=== PATIENT | female | born 2000 | race African-American/Black ===

== ENCOUNTER 2020-01-15 15:59 | Observation (INO) | payer OTHER ==
[2020-01-15] MEDS ORDERED: Midazolam HCl 2 mg/2 ml Vial ONE (16:02)
[2020-01-15] MEDS ORDERED: levETIRAcetam 500 MG/100 ML PREMIX BAG ONE (16:13)
[2020-01-15] MEDS ORDERED: Ondansetron PF 4 MG/2 ML Vial ONE (16:15)
[2020-01-15 16:25] LABS: Lavender RECEIVED; Red RECEIVED
[2020-01-15 16:30] LABS: #Eosinphils 0.1 thou/uL (0.0-0.7); #Lymphocytes 0.5 thou/uL (1.20-3.40); #Monocytes 0.7 thou/uL (0.11-0.59); #Neutrophils 6.7 thou/uL (1.40-6.50); %Basophils 0.5 % (0.0-1.0); %Eosinophils 0.6 % (0.0-10.0); %Lymphocytes 6.4 % (21.0-51.0); %Monocytes 9.2 % (0.0-10.0); %Neutrophils 83.3 % (42.0-75.0); Hemoglobin 11.6 g/dL (12.0-16.0); Mean Corpuscular HGB CONC 33.7 g/dL (32.0-36.0); Mean Corpuscular Hemoglobin 26.1 pg (27.0-31.0); Mean Corpuscular Volume 77.3 fL (78.0-98.0); Mean Platelet Volume 8.4 fL (7.4-10.4); Platelet Count 239 thou/uL (130-400); RBC Distribution Width 14.1 % (11.5-14.5); Red Blood Cell (RBC) Count 4.46 mill/uL (4.20-5.40)
--- NOTE | 2020-01-15 16:58 | RAD ---
EXAM: Single view of the chest HISTORY: Seizure and fever COMPARISON: None FINDINGS: Single view of the chest shows a normal sized cardiomediastinal silhouette. There is no lizbeth dence of consolidation, mass, or pleural effusion. The bones are unremarkable. IMPRESSION: No evidence of acute cardiopulmonary disease
[2020-01-15 16:59] LABS: ALT (SGPT) Less than 7 U/L (8-55); AST (SGOT) 15 U/L (5-34); Albumin 4.5 g/dL (3.5-5.0); Alkaline Phosphatase 71 U/L (40-110); Anion Gap 17 mmol/L (10-20); BUN (Urea Nitrogen) 8 mg/dL (7.0-18.7); Bilirubin, Total 0.7 mg/dL (0.2-1.2); Calc. Creatinine Clearance 0 mL/min (70-130); Calcium 9.9 mg/dL (7.8-10.44); Carbon Dioxide 16 mmol/L (22-29); Chloride 107 mmol/L (98-107); Estimated GFR-MDRD 79; Globulin 3.6 g/dL (2.4-3.5); Glucose 81 mg/dL (70-105); Potassium 4.2 mmol/L (3.5-5.1); Protein, Total 8.1 g/dL (6.0-8.3); Sodium 136 mmol/L (136-145)
[2020-01-15] MEDS ORDERED: SODIUM CHLORIDE 0.9% IVPB SCH (17:00)
[2020-01-15] MEDS ORDERED: FOSPHENYTOIN SODIUM IVPB SCH (17:00)
[2020-01-15 17:24] LABS: Lactic Acid 2.4 mmol/L (0.5-2.2)
[2020-01-15 18:36] LABS: Bacteria/HPF None Seen HPF (None Seen); Bilirubin Negative (Negative); Blood, Urine Negative (Negative); Clarity Clear (Clear); Glucose, Urine (Dipstick) Normal (Negative); Leukocyte 75 Leu/uL (Negative); Nitrite Negative (Negative); Protein, Urine (Dipstick) Negative (Neg-Trace); RBC/HPF 0-3 HPF (0-3); Squamous Epithelial 0-3 HPF (0-3); Urobilinogen Normal mg/dL (Less than 2); WBC/HPF 0-3 HPF (0-3)
[2020-01-15 18:39] LABS: Pregnancy Test - Urine (BHCG) Negative (Negative); Pregu Control Background? CLEAR/WHITE (CLR/WHITE); Pregu Control Bar Appear? YES (CONTROL BAR); Specific Gravity 1.014 (1.002-1.036)
[2020-01-15 18:45] LABS: Medtox Reader # READER 4
[2020-01-15 18:46] LABS: Amphetamine Not Detected (NotDetected); Barbiturates Screen Not Detected (NotDetected); Benzodiazepine Screen Not Detected (NotDetected); Cocaine Metabolite Screen Not Detected (NotDetected); Medtox Control Line Valid? VALID (VALID); Methadone Not Detected (NotDetected); Methamphetamine Not Detected (NotDetected); Opiate Screen Not Detected (NotDetected); Oxycodone Screen Not Detected (NotDetected); Phencyclidine (PCP) Not Detected (NotDetected); THC/Cannabinoid Screen Detected (NotDetected); Tricyclic Screen Not Detected (NotDetected)
[2020-01-15] MEDS ORDERED: Acetaminophen 500 MG TAB ONE (20:32)
[2020-01-15] MEDS ORDERED: cefTRIAXone\\ROCEPHIN 2 GM VIAL ONE (21:22)
[2020-01-15 22:21] LABS: Lactic Acid 2.4 mmol/L (0.5-2.2)
[2020-01-15 22:24] LABS: Anion Gap 13 mmol/L (10-20); BUN (Urea Nitrogen) 6 mg/dL (7.0-18.7); Calc. Creatinine Clearance 0 mL/min (70-130); Calcium 8.4 mg/dL (7.8-10.44); Carbon Dioxide 19 mmol/L (22-29); Chloride 109 mmol/L (98-107); Estimated GFR-MDRD Greater than 90; Glucose 88 mg/dL (70-105); Magnesium 1.7 mg/dL (1.6-2.6); Phosphorus 2.6 mg/dL (2.3-4.7); Potassium 3.6 mmol/L (3.5-5.1); Sodium 137 mmol/L (136-145)
--- NOTE | 2020-01-15 23:17 | HP ---
Please note that the patient has 2 different medical record numbers. For details on previous hospitalization, please refer to the medical record number, [id number]. CHIEF COMPLAINT: Seizure. HISTORY OF PRESENT ILLNESS: The patient is a 19-year-old female with seizure disorder, was brought into the hospital after an episode of seizure. History obtained from the patient and the family at the bedside. The patient was admitted at this facility in September 2019 with a diagnosis of breakthrough seizures. She was evaluated by Dr. Ace. She was advised to continue Lamictal. She was discharged home in a stable condition. She was evaluated by Dr. Ace yesterday. She had no issues since last discharge. Over the last few days, the patient has low-grade fever along with flu-like symptoms. Over the last 24 hours, the symptoms got worse. She had a seizure that lasted for approximately 30 minutes per family report. She was jerking her back. She also had altered mentation. She had 4 seizures in the ambulance. She got 4 mg of Versed. Her mentation is improving at this time. She denies any headache, double vision, blurring of vision, facial asymmetry, or weakness, numbness of one side more than the other. She feels generally weak and fatigued. In the emergency room, her initial vital signs showed temperature 99.8 with pulse rate of 141, blood pressure of 124/74 with O2 saturation 100% on room air. PAST MEDICAL HISTORY: 1. Seizure disorder. 2. History of autonomic dysfunction. 3. Chronic anemia. PAST SURGICAL HISTORY: Reviewed with the patient and none. ALLERGIES: THE PATIENT IS ALLERGIC TO TAMIFLU THAT CAUSES HALLUCINATION. THE PATIENT ALSO IS UNABLE TO TOLERATE KEPPRA PER FAMILY. MEDICATIONS: Home medications to be verified. The patient is on; 1. Lamictal. 2. Propranolol. 3. Midodrine. SOCIAL HISTORY: The patient currently lives at home. Denies any alcohol, tobacco, or drug use. FAMILY HISTORY: Negative for heart disease. REVIEW OF SYSTEMS: Limited due to current mentation. She denies any chest pain, shortness of breath, or palpitations. PHYSICAL EXAMINATION: VITAL SIGNS: As discussed above. GENERAL: A 19-year-old female, in no apparent distress, feels generally weak. HEENT: Head, atraumatic and normocephalic. Sclerae anicteric. Dry mucous membranes. There is mild erythema over the posterior pharynx. NECK: Supple. No JVD. No carotid bruit. LUNGS: Clear to auscultation bilaterally. No wheezing, rales, or rhonchi. HEART: S1 and S2 present. Tachycardic. No rubs or gallops. ABDOMEN: Soft, nontender. Bowel sounds present. EXTREMITIES: No edema or calf tenderness. NEUROLOGIC: Exam is limited due to generalized weakness. Sensation to touch was normal bilaterally. PSYCHIATRIC: The patient is alert, awake; however, slow to respond. SKIN: Warm and dry. LYMPH NODES: No palpable lymph nodes in the neck. PERIPHERAL VASCULAR: Radial pulses palpable bilaterally. LABORATORY FINDINGS: CBC showed WBC 8 with hemoglobin 11.6, hematocrit 34.5, platelet 239. Chemistry showed sodium of 136, potassium 4.2, chloride 102, bicarb 16, BUN of 8, creatinine 0.89. LFTs in normal range. Prolactin was 30.4. Magnesium 1.7. Urine drug screen was positive for cannabinoid. Urinalysis was negative for wbc or bacteria. Urine test was negative. Influenza screen was negative. Chest x-ray by my review was negative. IMPRESSION: 1. Breakthrough seizures. 2. Fever suspected secondary to viral syndrome. 3. History of seizure disorder. 4. Autonomic dysfunction. 5. Lactic acidosis secondary to seizure. PLAN: The patient will be monitored in the stroke unit. Empiric antibiotics will be continued. The patient received fosphenytoin. Blood cultures were not sent prior to the antibiotics. We will consult Neurology and Infectious Disease. We will check Dilantin level in a.m. We will resume her home medications once confirmed. Frequent neuro checks. The patient and the family understands the above plan of care. Job ID: [id number]
[2020-01-16 01:35] LABS: CSF, Glucose 60 mg/dl (40-70); CSF, Protein 25 mg/dL (15-40)
[2020-01-16 01:36] LABS: CSF Source CSF; Clarity Clear (Clear); Tube # 1; Tube # 4
[2020-01-16 01:49] VITALS: BMI 23.7
[2020-01-16] MEDS ORDERED: Ondansetron PF 4 MG/2 ML Vial IVP PRN ×2 (01:52→02:25)
[2020-01-16] MEDS ORDERED: Acetaminophen 325 MG TAB PO PRN (01:52)
[2020-01-16] MEDS ORDERED: Ondansetron ODT 4 MG TAB SL PRN (01:52)
[2020-01-16 01:57] LABS: Color Of CSF Supernatant COLORLESS (Colorless); Tube # 2; Unspun CSF Color COLORLESS (Colorless)
[2020-01-16] MEDS ORDERED: Lactated Ringer's 1,000 ML IV SCH (02:00)
[2020-01-16] MEDS ORDERED: Benzonatate 100 MG CAP PO PRN (02:25)
[2020-01-16] MEDS ORDERED: Cepastat Lozenges 1 LOZ PO PRN (02:25)
[2020-01-16] MEDS ORDERED: Diabetic Tussin 200 MG/10 ML UDCUP PO PRN (02:25)
[2020-01-16] MEDS: Lactated Ringer's 1,000 ML IV SCH ×2 (04:52→17:34)
[2020-01-16] MEDS: Acetaminophen 325 MG TAB PO PRN ×2 (07:57→13:08)
[2020-01-16] MEDS: guaiFENesin ER 600 MG TAB PO SCH ×2 (07:58→20:12)
[2020-01-16] MEDS: Propranolol HCl LA 60 MG CAP PO SCH (08:08)
[2020-01-16] MEDS ORDERED: lamoTRIgine 100 MG TAB PO SCH ×3 (09:00→10:30)
[2020-01-16 09:35] LABS: BUN (Urea Nitrogen) 5 mg/dL (7.0-18.7); Calc. Creatinine Clearance 101 mL/min (70-130); Calcium 8.8 mg/dL (7.8-10.44); Carbon Dioxide 17 mmol/L (22-29); Chloride 105 mmol/L (98-107); Estimated GFR-MDRD Greater than 90; Glucose 89 mg/dL (70-105); Magnesium 1.7 mg/dL (1.6-2.6); Phosphorus 2.9 mg/dL (2.3-4.7); Potassium 3.4 mmol/L (3.5-5.1); Sodium 131 mmol/L (136-145)
[2020-01-16 12:18] LABS: Anion Gap 22 mmol/L (10-20)
--- NOTE | 2020-01-16 12:34 | PDOC.HOSPP ---
- Subjective Encounter Date: 01/16/20 Encounter Time: 07:00 Subjective: pt has high fever today, she refused to do nasal swab for viral panel - Objective Vital Signs & Weight: Vital Signs (12 hours) Temp Pulse Pulse Pulse Resp BP BP 01/16/20 11:38 98.8 F 101 H 16 01/16/20 09:49 98.8 F 01/16/20 09:06 114 H 117 H 95/58 L 108/73 01/16/20 08:45 102.2 F H 01/16/20 08:25 122 H 18 01/16/20 04:44 99 F 110 H 20 01/16/20 04:00 01/16/20 01:29 99.8 F H 116 H 20 BP Pulse Ox 01/16/20 11:38 128/86 95 01/16/20 09:49 01/16/20 09:06 01/16/20 08:45 01/16/20 08:25 124/76 97 01/16/20 04:44 99 01/16/20 04:00 100 01/16/20 01:29 92/50 L 98 Weight Weight 121 lb 9.6 oz Result Diagrams: 01/15/20 16:07 01/16/20 09:04 Additional Labs: Accuchecks 01/15/20 16:47 POC Glucose 78 Radiology Reviewed by me: Yes EKG Reviewed by me: Yes Hospitalist ROS - Review of Systems Constitutional: reports: fever. denies: chills, sweats, weakness, malaise, other Eyes: denies: pain, vision change, conjunctivae inflammation, eyelid inflammation, redness, other ENT: denies: ear pain, ear discharge, nose pain, nose discharge, nose congestion , mouth pain, mouth swelling, throat pain, throat swelling, other Respiratory: reports: cough, dry. denies: shortness of breath, hemoptysis, SOB with excertion, pleuritic pain, sputum, wheezing, other Cardiovascular: denies: chest pain, palpitations, orthopnea, paroxysmal noc. dyspnea, edema, light headedness, other Gastrointestinal: denies: nausea, vomiting, abdominal pain, diarrhea, constipation, melena, hematochezia, other Genitourinary: denies: dysuria, frequency, incontinence, hematuria, retention, other Musculoskeletal: denies: neck pain, shoulder pain, arm pain, back pain, hand pain, leg pain, foot pain, other Skin: denies: rash, lesions, jonelle, bruising, other - Medication Medications: Active Medications Generic Name Dose Route Start Last Admin Trade Name Freq PRN Reason Stop Dose Admin Acetaminophen 650 mg 01/16/20 02:25 01/16/20 07:57 Tylenol PO 650 mg Q4H PRN Administration Headache/Fever/Mild Pain (1-3) Guaifenesin 600 mg 01/16/20 09:00 01/16/20 07:58 Mucinex PO 600 mg Q12HR DONNY Administration Lactated Ringer's 1,000 mls @ 75 mls/hr 01/16/20 02:25 01/16/20 04:52 Lactated Ringer's IV 1,000 mls .[id number] DONNY Administration Propranolol HCl 60 mg 01/16/20 09:00 01/16/20 08:08 Inderal La PO 60 mg DAILY DONNY Administration Sodium Chloride 10 ml 01/16/20 09:00 01/16/20 08:01 Flush - Normal Saline IVF 10 ml Q12HR DONNY Administration - Exam General Appearance: NAD, awake alert Eye: PERRL, anicteric sclera ENT: normocephalic atraumatic, no oropharyngeal lesions Neck: supple, symmetric, no JVD, no thyromegaly Heart: RRR, no murmur, no gallops, no rubs Respiratory: CTAB, no wheezes, no rales, no ronchi, normal chest expansion Gastrointestinal: soft, non-tender, non-distended, normal bowel sounds Extremities: no cyanosis, no clubbing Skin: normal turgor, no lesions Neurological: no focal deficits Musculoskeletal: normal tone, normal strength Psychiatric: normal affect, normal behavior Hosp A/P (1) Fever Code(s): R50.9 - FEVER, UNSPECIFIED Status: Acute (2) Seizure disorder Code(s): G40.909 - EPILEPSY, UNSP, NOT INTRACTABLE, WITHOUT STATUS EPILEPTICUS Status: Acute (3) Microcytic anemia Code(s): D50.9 - IRON DEFICIENCY ANEMIA, UNSPECIFIED Status: Acute (4) Hyponatremia Code(s): E87.1 - HYPO-OSMOLALITY AND HYPONATREMIA Status: Acute (5) Hypokalemia Code(s): E87.6 - HYPOKALEMIA Status: Acute (6) Viral infection Status: Acute (7) Cannabis abuse Code(s): F12.10 - CANNABIS ABUSE, UNCOMPLICATED Status: Acute (8) Lactic acidosis Code(s): E87.2 - ACIDOSIS Status: Acute - Plan old records reviewed/req, plan discussed w/ family lamictal 150 mg po bid as per neuro consult ID for fever replace potassium
[2020-01-16] MEDS ORDERED: Potassium Chloride 20 MEQ TAB PO SCH (12:45)
[2020-01-16] MEDS: Ibuprofen 200 MG TAB PO PRN (15:37)
[2020-01-16 17:56] LABS: Syphilis Antibody Nonreactive (Nonreactive); Syphilis Antibody Index 0.06 S/CO (<1.00 Non-Reactive)
[2020-01-16 17:57] LABS: HIV (1/2) Antibody/Antigen Non-Reactive (NonReactive); HIV 1/2 INDEX 0.23 S/CO (<1.00)
[2020-01-16] MEDS: lamoTRIgine 100 MG TAB PO SCH (20:12)
[2020-01-17] MEDS: Lactated Ringer's 1,000 ML IV SCH ×2 (06:26→16:23)
[2020-01-17] MEDS: Ibuprofen 200 MG TAB PO PRN ×3 (06:45→16:23)
--- NOTE | 2020-01-17 08:30 | CON ---
DATE OF CONSULTATION: 01/16/2020 REASON FOR CONSULTATION: Seizure activity with fever. HISTORY OF PRESENT ILLNESS: A 19-year-old with history of epilepsy, on Lamictal due to intolerance to alternate antiseizure medication, followed by Dr. Ace, who lives with family members in the area. In 2016, the patient was admitted to [facility] with acute febrile illness and seizure disorder. 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 This time in 2016, she presented through the emergency room with "acute viral illness," continued to have a high temperature measurement, was given broad-spectrum antimicrobial coverage and the fever resolved. Had CT of abdomen and pelvis, which was normal and there might be some early bibasilar inflammatory process. The patient was discharged on Omnicef and then given Dilantin and continued on Dilantin therapy. In 06/2018, she presented with respiratory failure, intubated with status epilepticus. She was extubated next morning, did well. No more seizures were noted and she was loaded with fosphenytoin and then discharged on oral phenytoin 3 times daily, propranolol, and midodrine. In 06/2019, she presented through the emergency room shaking with tonic clonic like movements, which were felt to be active seizure events. During those events, she maintained her airway, O2 saturations were in the high 90s to 100%. She was given fosphenytoin, was evaluated by Neurology, and had an EEG with no evidence of seizure activity. She did have elevated prolactin level. She was discharged off antiseizure medication this time. One month later in 07/2019, she presented with seizure-like activity and she was seen by neurologist and recommended starting Lamictal. Finally in 09/2019, she was admitted with "status epilepticus," and she was given again Lamictal. Apparently, she had not been taking medication. She was discharged on midodrine and Lamictal. This time, she presents with recurrence of seizure activity. Apparently, she had been taking care of her niece and she had been ill pretty much the day before admission and had been taking care of a few days before that and was having some coughing spells and fever, and then apparently had tonic-clonic activity for about 30 minutes before arrival. Initial findings included BP 120/74, pulse 140, temperature 99.8, and O2 sats 100. T-max in the emergency room was 102.9. In the exam, other than tachycardia, she was a little bit drowsy, postictal most likely. She still had some seizure activity in the emergency room. The patient was given Rocephin, vancomycin, fosphenytoin, and Keppra. She had one temp elevation at 102.2 since. She is currently awake, alert, oriented, follows commands. Numerous family members in the room. Denies headaches. No neck pain. A little bit of cough intermittently, but no sputum production. No chest pain. No abdominal pain. No diarrhea. No genitourinary symptoms. No joint symptoms or skin disorder. MEDICAL HISTORY: 1. Seizure disorder, sometimes labeled as pseudoseizures, but those have been recurrent and sometimes required intubation for airway protection. She has been on the Lamictal, Dilantin, had reported allergy to Keppra. 2. History of autonomic dysfunction. 3. Anemia of uncertain etiology. SURGICAL HISTORY: Negative. ALLERGIES: KEPPRA AND TAMIFLU WITH HALLUCINATIONS, NOT TRUE ALLERGIC REACTION. SOCIAL HISTORY: Lives at home with family. Not working. No smoking. No drug use. FAMILY HISTORY: Noncontributory. CURRENT MEDICATIONS: 1. P.r.n. medications. 2. Motrin. 3. Lamictal. 4. Zofran. 5. Inderal. PHYSICAL EXAMINATION: VITAL SIGNS: T-max 102.2, blood pressure 120/86, pulse 101, respirations 16, and O2 saturation 95 on room air. SKIN: No areas of skin breakdown. The patient is voiding spontaneously with no catheters and she has a peripheral IV access. No lymphadenopathy. HEENT: Ocular movements conjugate. Sclerae white. Pupils are equal. Oral cavity normal. Quite a few teeth in place in fairly decent shape. NECK: Supple. No jugular vein distention or carotid bruits. LUNGS: Symmetric. Clear breath sounds. HEART: S1 and S2. Regular rate. No S3 or S4. ABDOMEN: Soft, not distended or tender. No ascites. No bladder distention. EXTREMITIES: No joint inflammatory activity. Moves extremities equally. Plantar responses are flexor. NEUROLOGIC: Awake, oriented, follows commands. LABORATORY DATA: WBC count 8.0, hemoglobin 11.6, and platelets 239 with 83% neutrophils. Creatinine 0.79. Liver profile normal. Albumin 4.5 and globulin 3.6. I do not see any evidence of HIV, syphilis test, or hepatitis serology. CSF done this time showed 0 wbc's, protein and glucose normal. Chest x-ray with no infiltrates. ASSESSMENT: 1. Recurrent seizures with fever, mostly tonic clonic. 2. Normal cerebrospinal fluid evaluation. 3. Normal white cell count with mild neutrophilia. 4. Normal urinalysis for the most part. DISCUSSION: The differential diagnosis includes viral infection with febrile seizures. For example, respiratory viral infection versus genetic epilepsy with febrile seizures. More recently, a number of genetic conditions have been described, which are associated with recurrent seizures with fever. Those are with various mechanisms of genetic transmission and anywhere from autosomal dominant to recessive, and related to mutations in the sodium channel. The vast majority of those are only allowed management reassurance. The identification of those mutations may lead to further investigations and counseling, and I would consider referral to a tertiary center that might do genetic testing for those things. Other than that, I think we will go ahead and discontinue antimicrobial therapy at this moment. There is no evidence of a bacterial infectious process. We will submit respiratory virus PCR panel. If that is negative, then the hypothesis of a genetic seizure syndrome would be of increased likelihood. Job ID: [id number] [facility]
[2020-01-17] MEDS: Propranolol HCl LA 60 MG CAP PO SCH (09:22)
[2020-01-17] MEDS: lamoTRIgine 100 MG TAB PO SCH ×2 (09:23→20:41)
[2020-01-17] MEDS: guaiFENesin ER 600 MG TAB PO SCH ×2 (09:23→20:41)
[2020-01-17] MEDS: Ondansetron ODT 4 MG TAB PO PRN ×2 (11:45→16:23)
--- NOTE | 2020-01-17 14:18 | PDOC.HOSPP ---
- Subjective Encounter Date: 01/17/20 Encounter Time: 07:00 Subjective: Patient seen and examined. No new complaints. No overnight events - Objective Vital Signs & Weight: Vital Signs (12 hours) Temp Pulse Pulse Pulse Resp BP BP 01/17/20 11:15 98.9 F 82 15 01/17/20 08:33 88 91 105/60 100/52 L 01/17/20 07:15 99.0 F 93 16 01/17/20 03:00 98.7 F 98 16 BP Pulse Ox 01/17/20 11:15 102/62 98 01/17/20 08:33 01/17/20 07:15 99/57 L 97 01/17/20 03:00 90/52 L 98 Weight Weight 121 lb 9.6 oz I&O: 01/16/20 01/17/20 01/18/20 06:59 06:59 06:59 Intake Total 480 Balance 480 Result Diagrams: 01/15/20 16:07 01/16/20 09:04 Radiology Reviewed by me: Yes EKG Reviewed by me: Yes Hospitalist ROS - Review of Systems ENT: denies: ear pain, ear discharge, nose pain, nose discharge, nose congestion , mouth pain, mouth swelling, throat pain, throat swelling, other Respiratory: denies: cough, dry, shortness of breath, hemoptysis, SOB with excertion, pleuritic pain, sputum, wheezing, other Cardiovascular: denies: chest pain, palpitations, orthopnea, paroxysmal noc. dyspnea, edema, light headedness, other Gastrointestinal: denies: nausea, vomiting, abdominal pain, diarrhea, constipation, melena, hematochezia, other Genitourinary: denies: dysuria, frequency, incontinence, hematuria, retention, other Musculoskeletal: denies: neck pain, shoulder pain, arm pain, back pain, hand pain, leg pain, foot pain, other - Medication Medications: Active Medications Generic Name Dose Route Start Last Admin Trade Name Freq PRN Reason Stop Dose Admin Acetaminophen 650 mg 01/16/20 02:25 01/16/20 13:08 Tylenol PO 650 mg Q4H PRN Administration Headache/Fever/Mild Pain (1-3) Guaifenesin 600 mg 01/16/20 09:00 01/17/20 09:23 Mucinex PO 600 mg Q12HR DONNY Administration Lactated Ringer's 1,000 mls @ 75 mls/hr 01/16/20 02:25 01/17/20 06:26 Lactated Ringer's IV Not Given .[id number] DONNY Ibuprofen 400 mg 01/16/20 15:18 01/17/20 11:46 Motrin PO 400 mg Q6H PRN Administration Fever>101/(Mi/Mod/Sev) Pain Lamotrigine 150 mg 01/16/20 21:00 01/17/20 09:23 Lamictal PO 150 mg BID DONNY Administration Ondansetron HCl 4 mg 01/16/20 02:25 01/17/20 11:45 Zofran Odt PO 4 mg Q6H PRN Administration Nausea/Vomiting Propranolol HCl 60 mg 01/16/20 09:00 01/17/20 09:22 Inderal La PO 60 mg DAILY DONNY Administration Sodium Chloride 10 ml 01/16/20 09:00 01/17/20 09:23 Flush - Normal Saline IVF 10 ml Q12HR DONNY Administration - Exam General Appearance: NAD, awake alert Eye: PERRL, anicteric sclera ENT: normocephalic atraumatic, no oropharyngeal lesions Neck: supple, symmetric, no JVD, no thyromegaly Heart: RRR, no murmur, no gallops, no rubs Respiratory: CTAB, no wheezes, no rales, no ronchi Gastrointestinal: soft, non-tender, non-distended, normal bowel sounds Extremities: no cyanosis, no clubbing, no edema Skin: normal turgor, no lesions Musculoskeletal: normal tone, normal strength Psychiatric: normal affect, normal behavior Hosp A/P (1) Fever Code(s): R50.9 - FEVER, UNSPECIFIED Status: Acute (2) Seizure disorder Code(s): G40.909 - EPILEPSY, UNSP, NOT INTRACTABLE, WITHOUT STATUS EPILEPTICUS Status: Acute (3) Microcytic anemia Code(s): D50.9 - IRON DEFICIENCY ANEMIA, UNSPECIFIED Status: Acute (4) Hyponatremia Code(s): E87.1 - HYPO-OSMOLALITY AND HYPONATREMIA Status: Acute (5) Hypokalemia Code(s): E87.6 - HYPOKALEMIA Status: Acute (6) Viral infection Status: Acute (7) Cannabis abuse Code(s): F12.10 - CANNABIS ABUSE, UNCOMPLICATED Status: Acute (8) Lactic acidosis Code(s): E87.2 - ACIDOSIS Status: Acute - Plan old records reviewed/req, plan discussed w/ family lamictal 150 mg po bid as per neuro consult ID for fever replace potassium 01/17/20 rehab evaluation if neuro ok, will dc pt is allergic to tamiflu, there is no alternative in hospital
--- NOTE | 2020-01-17 16:39 | PRG ---
DATE OF SERVICE: 01/17/2020 SUBJECTIVE: The patient has not had any more seizures. No headache. She has been afebrile since yesterday. Other vital signs are normal. Exam is unchanged. White cell count 8.0. Microbiology shows the respiratory virus PCR panel with influenza A identified. ASSESSMENT AND DISCUSSION: Recurrent seizures with fever,nl CSF evaluation with influenza A infection identified. The patient probably is beyond the threshold for treating this influenza infection. She is clinically better and does not requires antiviral treatment at this time. Discharge planning whenever she is clinically stable. Job ID: [id number] [facility]
--- NOTE | 2020-01-17 17:35 | CON ---
DATE OF CONSULTATION: 01/17/2020 Tye came in with complaints of a fever and apparently had some seizure activity. She has been diagnosed with the flu. She has not run a fever today. Her sisters report that she had 2 nonconvulsive seizures earlier today. We increased her Lamictal to 150 mg twice a day yesterday. This will take several days to reach steady state. She is complaining that she is not able to walk after she has her seizures. This has happened in the past on numerous occasions, reportedly can take heard several days to a month to regain her ability to walk. This I believe is probably psychogenic. At this juncture, neurologically, she is stable to be discharged home. Her family can care for and monitor for seizure activity. Since she cannot take Tamiflu, this seems to be little else that needs to be done at this point. Job ID: [id number]
[2020-01-18 07:17] VITALS: BP 103/53; TEMP 98.8
[2020-01-18] MEDS: guaiFENesin ER 600 MG TAB PO SCH (08:44)
[2020-01-18] MEDS: Lactated Ringer's 1,000 ML IV SCH (10:52)
[2020-01-18] MEDS: lamoTRIgine 100 MG TAB PO SCH (10:53)
[2020-01-18] MEDS: Propranolol HCl LA 60 MG CAP PO SCH (10:53)
--- NOTE | 2020-01-18 13:29 | DIS ---
DATE OF ADMISSION: 01/16/2020 DATE OF DISCHARGE: 01/18/2020 PRIMARY CARE PHYSICIAN: [facility] Call admission. DISCHARGE DISPOSITION: Home. PRIMARY DISCHARGE DIAGNOSES: 1. Seizure disorder and episode of seizure, influenza A infection. 2. Lactic acidosis. 3. Hypokalemia. 4. Hyponatremia. 5. Viral syndrome. 6. Cannabis abuse. 7. Microcytic anemia. SECONDARY DISCHARGE DIAGNOSIS: Epilepsy. PRIMARY PROCEDURE/OPERATION: None. RADIOLOGICAL INVESTIGATION: CT chest x-ray, normal. SIGNIFICANT LABORATORY DATA: WBC 8.0, hemoglobin 11.6, platelet 239. Sodium 131, potassium 3.4, BUN 5, creatinine 0.77, calcium 8.8, lactic acid 2.4. Urinalysis, unremarkable. CSF, normal. Urine drug screen showed urine cannabis positive. Syphilis and HIV, negative. Blood culture and CSF culture, negative. Respiratory virus panel showed influenza A. DISCHARGE MEDICATIONS: 1. Lamictal 150 mg p.o. b.i.d. 2. Inderal 60 mg p.o. daily. CONTRAINDICATION: None. CODE STATUS: Full code. INPATIENT CONSULTANTS: 1. Dr. Wolff was consulted for viral syndrome. 2. Dr. Chito Ace, Neurology was consulted for seizure disorder. ALLERGIES: KEPPRA AND TAMIFLU. DISCHARGE PLAN: Posthospital, the patient will follow up with Dr. Chito Ace as instructed and primary care physician. HOSPITAL COURSE: A 19-year-old female who has underlying epilepsy and she was having high-grade fever and that precipitated her seizure and post procedure, the patient was in postictal phase. The patient was observed to Stroke floor. Neurology was consulted. The patient was taking Lamictal 100 mg p.o. b.i.d. and this time Neurology recommended to increase to 150 mg p.o. b.i.d. The patient did not have any further seizure. The patient was having recurrent fever and that was attributed to be due to viral illness. The patient had flu screen negative, but in respiratory virus panel was positive for influenza A. The patient also had lactic acidosis that was related with seizure. The patient had abnormal electrolytes that was corrected with IV fluid. Dr. Wolff was consulted and he recommended that the patient does not need any intervention at this point. The patient is allergic to Tamiflu and she was out of window period for her flu treatment and that is why she was not given any flu medication and she is spontaneously improved and she did not have any further fever while in hospital. The patient did not have any flu-like illness as well. Her CSF was normal. The patient was having difficulty ambulation, which she had before as well after seizure and that takes some time to get recovery. Neurology and ID team cleared her for discharge. The patient is seen and examined at bedside today. PHYSICAL EXAMINATION: VITAL SIGNS: Currently, temperature 98.8, pulse 75, respiratory rate 16, saturation 97% on room air, blood pressure 103/53. GENERAL: The patient is currently alert, awake, no acute distress. HEAD: Normocephalic and atraumatic. NECK: Supple. No JVD. No meningeal signs of irritation. LUNGS: Clear to auscultation without any rhonchi or rales. CARDIAC: S1 and S2 regular. No murmur. No gallop. No rub. ABDOMEN: Soft, bowel sounds present, nontender, nondistended. No organomegaly. No mass. EXTREMITIES: No edema. NEUROLOGIC: Nonfocal examination. Overall, the patient is medically stable for discharge today. Job ID: [id number]
== END 2020-01-18 10:45 | disposition home or self-care (01) ==
LOC: ERS 15:59 → EDBD 15:59 → 2SE 01-16 01:26 → INTOOBSV 01-16 01:26
PROVIDERS: ADMIT Internal Medicine; ATTEND Internal Medicine
DX: G40.409 Other generalized epilepsy and epileptic syndromes, not intractable, without status epilepticus (principal); J10.1 Influenza due to other identified influenza virus with other respiratory manifestations; E87.2 Acidosis; E87.6 Hypokalemia; E87.1 Hypo-osmolality and hyponatremia; F12.10 Cannabis abuse, uncomplicated; F45.8 Other somatoform disorders; D50.9 Iron deficiency anemia, unspecified; Z79.899 Other long term (current) drug therapy; Z88.8 Allergy status to other drugs, medicaments and biological substances
CPT/HCPCS: 36415; 36416; 51701; 62270; 71045; 80048; 80053; 80185; 80306; 81003; 81015; 81025; 82550; 82945; 83605; 83735; 84100; 84146; 84157; 85025; 86780; 87040; 87070; 87205; 87389; 87633; 87804; 89051; 96361; 96365; 96366; 96367; 96375; A4353; G0378; J0133; J0696; J1953; J2250; J2405; J3370; J3490; Q0162; Q2009